=== PATIENT | male | born 1990 | race Caucasian/White ===

== ENCOUNTER 2020-05-29 08:24 | Outpatient (CLI) | payer BC | END 2020-05-29 08:25 | disposition home or self-care (01) | LOC: BICULT 08:24 | PROVIDERS: ATTEND Internal Medicine Gastroenterology | DX: K92.1 Melena (principal); R94.5 Abnormal results of liver function studies; R10.31 Right lower quadrant pain; K90.41 Non-celiac gluten sensitivity; K76.0 Fatty (change of) liver, not elsewhere classified | CPT/HCPCS: 76705 ==